=== PATIENT | female | born 1990 | race Caucasian/White ===

== ENCOUNTER 2016-11-15 13:37 | Emergency (ER) | payer MEDICAID ==
--- NOTE | 2016-11-15 15:53 | PD ---
HPI Chief Complaint Contractions Date Seen: Nov 15, 2016 Time Seen: 15:47 Travel History International Travel<30 Days: No Contact w/Intl Traveler<30Days: No Known Affected Area: No History of Present Illness HPI 26-year-old 3 para 2 at 38 weeks 2 days gestation who notes increased contraction activity since last evening. She denies any rupture membranes, bleeding. She reports good movement. She states that she was 3 cm dilated in the office on Friday and her membranes were stripped at that time in anticipation of induction of labor next Friday. Para: 2 : 3 History Past Medical History Medical History: Denies Significant Hx Obstetric History Obstetric History Prior history of shoulder dystocia with forceps delivery of her first child This within, R[place] by diet-controlled gestational diabetes Past Surgical History Surgical History: No Previous Surgery Family History Family History: Negative Social History Alcohol Use: No Tobacco Use: No Substance Abuse: No Allergies-Medications (Allergen,Severity, Reaction): Coded Allergies: Augmentin (Verified Allergy, Severe, 09/22/11) Review of Systems Except as stated in HPI: all other systems reviewed are Neg Physical Exam Narrative GENERAL: Well-nourished, well-developed patient. SKIN: Warm and dry. HEAD: Normocephalic and atraumatic. EYES: No scleral icterus. No injection or drainage. ENT: No nasal drainage noted. Mucous membranes pink. Airway patent. NECK: Supple, trachea midline. No JVD. CARDIOVASCULAR: Regular rate and rhythm without murmurs, gallops, or rubs. RESPIRATORY: Breath sounds equal bilaterally. No accessory muscle use. ABDOMEN/GI: Abdomen soft, non-tender, bowel sounds present, no rebound, no guarding Gravid to [-] weeks size Fundal Height: [-] GENITOURINARY: External Genitalia: intact and normal in appearance BUS glands: [-] Cervix: [-3-4] Dilatation: [-] Effacement: [-60] Station: [High-] Presentation: [-Vertex] Membranes: [intact ] Uterine Contractions: [Mild irregular-] FHT's: Category: [1-] Baseline: [-] Reactive: [-] Variability: [-] Decels: [-] EXTREMITIES: No cyanosis or edema. BACK: Nontender without obvious deformity. No CVA tenderness. NEUROLOGICAL: Awake and alert. Motor and sensory grossly within normal limits. Five out of 5 muscle strength in all muscle groups. Normal speech. 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 Category 1 heart rate. Patient was discharged home with labor precautions. Diagnosis Diagnosis: Primary Impression: 38 weeks gestation of Additional Impression: Irregular contractions Disposition: 01 DISCHARGE HOME Condition: Good Abebe Thomas MD Nov 15, 2016 15:53
== END 2016-11-15 16:14 | disposition home or self-care (01) ==
LOC: HOBED 13:37
DX: O47.1 False labor at or after 37 completed weeks of gestation (principal); Z3A.38 38 weeks gestation of pregnancy
CPT/HCPCS: 59025

== ENCOUNTER 2016-11-20 08:01 | Inpatient (IN) | payer MEDICAID ==
[2016-11-20] VITALS (75 sets, daily range): BP systolic 98–127; BP diastolic 43–79; PULSE 75–104; RESP 16–18; TEMP 98.1–98.5
[2016-11-20] MEDS ORDERED: LACTATED RINGER'S 1000 ML INJ 1,000 ML IV PRN (09:13)
[2016-11-20] MEDS ORDERED: OXYTOCIN 30 UNITS-500ML PREMIX 500 ML IV ONE (09:15)
[2016-11-20] MEDS ORDERED: MINERAL OIL 10 ML VIAL TOPICAL PRN (09:15)
[2016-11-20] MEDS ORDERED: LIDOCAINE HCL 1% 50 ML VIAL INFIL PRN (09:15)
[2016-11-20] MEDS ORDERED: SODIUM CHLORID 0.9% 500 ML INJ 500 ML IV PRN (09:15)
[2016-11-20] MEDS ORDERED: CITRIC ACID-SODIUM CITRATE LIQ 30 ML UDC PO SCH (09:15)
[2016-11-20] MEDS ORDERED: LIDOCAINE HCL 1% 50 ML VIAL I-DERMAL PRN (09:15)
[2016-11-20] MEDS ORDERED: SODIUM CHLOR 0.9% 1000 ML INJ 1,000 ML IV PRN (09:33)
[2016-11-20 09:43] LABS: AUTOMATED NEUTROPHIL # 5.3 TH/MM3 (1.8-7.7); BASOPHIL % 0.6 % (0.0-2.0); EOSINOPHIL # 0.1 TH/MM3 (0-0.4); EOSINOPHIL % 1.3 % (0.0-4.0); HEMATOCRIT 33.4 % (35.0-46.0); HEMO FLAGS DIFF FINAL; LYMPH % 24.6 % (9.0-44.0); MEAN CELL VOLUME 89.2 FL (80.0-100.0); MEAN CORPUSCULAR HEMOGLOBIN 30.6 PG (27.0-34.0); MEAN CORPUSCULAR HGB CONC 34.3 % (32.0-36.0); NEUT % 66.5 % (16.0-70.0); PLATELET COUNT 155 TH/MM3 (150-450); RED BLOOD COUNT 3.74 MIL/MM3 (4.00-5.30); RED CELL DISTRIBUTION WIDTH 14.4 % (11.6-17.2)
[2016-11-20 09:51] LABS: BACTERIA, URINE OCC /hpf; BLOOD, URINE NEG (NEG); GLUCOSE,URINE NEG (NEG); KETONE, URINE NEG (NEG); NITRITE,URINE NEG (NEG); PH, URINE 7.5 (5.0-8.5); SQUAMOUS EPITHELIAL CELL URINE 2 /hpf (0-5); URINE COLOR YELLOW (YELLW/STRAW)
[2016-11-20 09:54] LABS: COMMENT (UR) CULT NOT INDICATED; CULTURE IF INDICATED CULT NOT INDICATED
[2016-11-20] MEDS ORDERED: PENICILLIN G POTASSIUM INJ 5,000,000 UNITS in SODIUM CHLORIDE 0.9% INJ 100 ML IV ONE (10:00)
[2016-11-20] MEDS ORDERED: OXYTOCIN 30 UNITS-500ML PREMIX 500 ML IV SCH (10:00)
[2016-11-20] MEDS ORDERED: LACTATED RINGER'S 1000 ML INJ 1,000 ML IV SCH (10:00)
[2016-11-20] MEDS ORDERED: ePHEDrine/NS 50 MG/5 ML SYR ONE (12:00)
[2016-11-20] MEDS ORDERED: fentaNYL 2MCG-BUPIV 0.125% INJ 100 ML ONE (12:14)
[2016-11-20] MEDS ORDERED: fentaNYL 2MCG-BUPIV 0.125% INJ 100 ML EPIDURAL SCH (13:30)
[2016-11-20] MEDS ORDERED: NO SYSTEM NARCOTICS XX PRN (13:30)
[2016-11-20] MEDS ORDERED: DO NOT ADMINISTER ANTICOAGULANTS XX PRN (13:30)
[2016-11-20] MEDS ORDERED: ePHEDrine/NS 50 MG/5 ML SYR IV PRN (13:30)
[2016-11-20] MEDS ORDERED: PENICILLIN G POTASSIUM INJ 2,500,000 UNITS in SODIUM CHLORIDE 0.9% INJ 100 ML IV SCH (14:00)
[2016-11-20] MEDS ORDERED: DIPHTH/TETANUS/ACEL PERTUSSIS (BOOSTER) 0.5 ML VIAL/PFS IM ONE (16:00)
[2016-11-20] MEDS ORDERED: MEASLES, MUMPS, RUBELLA VACCINE 0.5 ML VIAL SQ ONE (16:00)
--- NOTE | 2016-11-20 16:26 | PD.OB.DELI ---
Delivery Date: Nov 20, 2016 Anesthesia: Epidural Episiotomy: None Vaginal Delivery: Normal, Spontaneous Presentation: Occiput anterior Nuchal Cord: None Infant: Male, Single One Minute : 8 Five Minute : 9 Care: Spontaneous crying, Responded to stimulation Placenta: Spontaneous delivery, Intact, 3 vessel cord Laceration: No lacerations Vince Alvarado MD Nov 20, 2016 16:26
[2016-11-20] MEDS ORDERED: ZOLPIDEM TARTRATE 5 MG TAB PO PRN (16:30)
[2016-11-20] MEDS ORDERED: ALUMINUM/MAGNESIUM/SIMETH 30 ML CUP PO PRN (16:30)
[2016-11-20] MEDS ORDERED: ONDANSETRON ODT 4 MG TAB PO PRN (16:30)
[2016-11-20] MEDS ORDERED: DOCUSATE SODIUM 50 MG/SENNA 8.6 MG TAB PO PRN (16:30)
[2016-11-20] MEDS ORDERED: SODIUM CHLORIDE 0.9% FLUSH 5 ML FLUSH IV PRN (16:30)
[2016-11-20] MEDS: IBUPROFEN 600 MG TAB PO PRN (20:29)
[2016-11-20] MEDS: BENZOCAINE 20% TOPICAL SPRAY 60 ML CAN TOPICAL PRN (20:29)
[2016-11-20] MEDS: WITCH HAZEL 50%/GLYCERIN 12.5% 40 PAD JAR TOPICAL PRN (20:29)
[2016-11-20] MEDS ORDERED: SODIUM CHLORIDE 0.9% FLUSH 5 ML FLUSH IV SCH (21:00)
[2016-11-21] MEDS: ACETAMINOPHEN 325 MG TAB PO PRN ×2 (00:29→07:55)
[2016-11-21] MEDS: IBUPROFEN 600 MG TAB PO PRN ×3 (06:26→23:48)
--- NOTE | 2016-11-21 08:33 | HHI.OB ---
Subjective Post Day: 1 Remarks doig well. Complains of mild back pain and vulvar pain Objective Vitals/I&O Vital Signs Date Time Temp Pulse Resp B/P Pulse Ox O2 Delivery O2 Flow Rate FiO2 11/20/16 20:15 98.1 11/20/16 20:15 83 18 111/63 11/20/16 17:26 16 11/20/16 17:16 79 112/55 11/20/16 17:15 16 11/20/16 17:01 95 110/77 11/20/16 17:00 16 11/20/16 16:45 16 11/20/16 16:45 90 107/63 11/20/16 16:35 80 105/53 11/20/16 16:31 90 104/50 11/20/16 16:30 98.1 16 11/20/16 16:25 104 112/79 11/20/16 16:01 99 119/75 11/20/16 15:46 92 109/64 11/20/16 15:31 100 101/73 11/20/16 15:15 98.5 16 11/20/16 15:10 95 11/20/16 15:05 92 11/20/16 15:01 98 123/63 11/20/16 15:00 93 11/20/16 14:55 94 11/20/16 14:50 98 11/20/16 14:46 101 119/72 11/20/16 14:45 16 11/20/16 14:45 93 11/20/16 14:40 102 11/20/16 14:35 89 11/20/16 14:31 88 126/62 11/20/16 14:30 96 11/20/16 14:25 93 11/20/16 14:20 95 11/20/16 14:16 91 117/57 11/20/16 14:15 98 11/20/16 14:12 16 11/20/16 14:10 91 11/20/16 14:05 92 11/20/16 14:01 96 113/52 11/20/16 14:00 92 11/20/16 13:50 90 11/20/16 13:49 82 109/59 11/20/16 13:46 92 104/61 11/20/16 13:45 89 11/20/16 13:44 92 104/51 11/20/16 13:40 104 11/20/16 13:35 95 11/20/16 13:30 94 16 118/63 11/20/16 13:25 90 11/20/16 13:20 82 11/20/16 13:16 80 114/55 11/20/16 13:15 91 11/20/16 13:10 77 11/20/16 13:05 83 11/20/16 13:01 81 102/45 11/20/16 13:00 16 11/20/16 13:00 81 11/20/16 12:55 86 11/20/16 12:50 86 11/20/16 12:46 85 127/57 11/20/16 12:45 84 11/20/16 12:41 83 103/45 11/20/16 12:40 79 11/20/16 12:39 16 11/20/16 12:36 80 98/50 11/20/16 12:35 86 11/20/16 12:31 75 100/68 11/20/16 12:30 83 11/20/16 12:30 98.5 16 11/20/16 12:26 89 101/43 11/20/16 12:25 88 11/20/16 12:20 90 11/20/16 12:20 81 115/72 11/20/16 12:16 87 100/68 11/20/16 12:11 79 18 114/65 11/20/16 11:45 18 11/20/16 11:08 16 11/20/16 11:04 78 102/51 11/20/16 10:45 16 11/20/16 10:15 16 11/20/16 09:45 16 11/20/16 09:15 98.5 11/20/16 09:15 16 Objective Remarks GENERAL: Well-nourished, well-developed patient. ABDOMEN/GI: Abdomen soft, non-tender. Fundus: Firm, non-tender at umbilicus. GENITOURINARY: Light to moderate bleeding. EXTREMITIES: No cyanosis or edema, non-tender, without signs of DVT. Medications and IVs Current Medications Medications (Trade) Dose Ordered Sig/George Route Start Time Stop Time Status Last Admin (NS Flush) 2 ml BID IV 11/20/16 21:00 (NS Flush) 2 ml UNSCH PRN IV 11/20/16 16:30 (Tylenol) 650 mg Q4H PRN PO 11/20/16 16:30 11/21/16 07:55 (Motrin) 600 mg Q6H PRN PO 11/20/16 16:30 11/21/16 06:26 (Americaine 20% Top Spr) 1 spray Q4H PRN TOPICAL 11/20/16 16:30 11/20/16 20:29 (Tucks Pads) 1 applic QID PRN TOPICAL 11/20/16 16:30 11/20/16 20:29 (China-Colace) 2 tab Q12H PRN PO 11/20/16 16:30 (Ambien) 5 mg HS PRN PO 11/20/16 16:30 (Mag-Al Plus Susp Liq) 15 ml Q8H PRN PO 11/20/16 16:30 (Zofran Odt) 4 mg Q6H PRN PO 11/20/16 16:30 Assessment/Plan Problem List: (1) 38 weeks gestation of (2) Spontaneous vaginal delivery Discharge Planning at 48 hours Vince Alvarado MD Nov 21, 2016 08:33
--- NOTE | 2016-11-21 08:38 | HHI.DCPOC ---
Discharge Care Plan Diagnosis: (1) Spontaneous vaginal delivery Report Symptoms to Your Doctor -Temperate above 100.5 degrees -Redness, of incision or excessive or foul smelling drainage -Unusual pain or calf pain -Increased vaginal bleeding -Painful or difficulty urinating -Feelings of extreme sadness or anxiety after 2 weeks Goals to Promote Your Health * To prevent worsening of your condition and complications * To maintain your health at the optimal level Directions to Meet Your Goals Take your medications as prescribed Follow your dietary instruction Follow activity as directed Ensure plenty of rest for recovery Drink fluids for hydration Keep your appointments as scheduled Take your immunizations and boosters as scheduled If your symptoms worsen call your PCP, if no PCP go to Urgent Care Center or Emergency Room Smoking is Dangerous to Your Health. Avoid second hand smoke Call the 24-hour crisis hotline for domestic abuse at Vince Alvarado MD Nov 21, 2016 08:38
--- NOTE | 2016-11-21 08:44 | HHI.DS ---
Admission Date Nov 20, 2016 at 08:01 Discharge Date: Nov 22, 2016 Admitting Diagnosis Diagnosis: (1) 39 weeks gestation of Delivery Date: Nov 20, 2016 Vaginal Delivery: Normal, Spontaneous Infant: Male, Single Brief History patient came for induction at 39 weeks Hospital Course doing well will be DC home Pt Condition on Discharge: Good Discharge Disposition: Discharge Home Discharge Instructions Diet Instructions: As Tolerated, No Restrictions Activities You Can Perform: Regular-No Restrictions Activities to Avoid: Driving for 24 hrs Follow up Referrals: [facility] - 2 Weeks @ [facility] with Vince Alvarado MD, John William C. MD Nov 21, 2016 08:44
[2016-11-21] MEDS ORDERED: OXYC1TAB63 PO (08:46)
--- NOTE | 2016-11-21 08:48 | MH ---
cc: LANE GARCIA M.D. DATE OF ADMISSION: 11/20/2016 HISTORY AND PHYSICAL This is a 26-year-old 3, para 2, who came in at 39-weeks at 3 cm dilated for induction of labor. The patient is 39 weeks by good dating. PAST MEDICAL HISTORY None. PAST SURGICAL HISTORY None. OBSTETRICAL HISTORY She has had two vaginal deliveries. She has had diabetes, diet controlled during this . GYNECOLOGIC HISTORY Negative. MEDICATIONS None. ALLERGIES None. SOCIAL HISTORY She does not smoke, drink or use drugs. PHYSICAL EXAMINATION VITAL SIGNS: Stable and afebrile. NECK: Thyroid palpably normal. HEART: Regular rate and rhythm without murmur or gallop. LUNGS: Clear to auscultation bilaterally. ABDOMEN: Soft, nontender, nondistended. Gravid uterus. Cervix is 3-4 cm dilated. LOWER EXTREMITIES: No edema. IMPRESSION Our impression at this time is induction of labor at 39 weeks. The patient is 3, para 2 with favorable cervix, group B strep positive. She will receive penicillin prophylaxis. MD NICOLE Albright/JUDY /8:37 AM /8:41 AM
[2016-11-21] MEDS: oxyCODONE/ACETAMINOPHEN 5 MG/325 MG TAB PO PRN ×4 (09:57→23:48)
[2016-11-21] MEDS ORDERED: DIPHTH/TETANUS/ACEL PERTUSSIS (BOOSTER) 0.5 ML VIAL/PFS IM ONE (14:30)
[2016-11-21 21:00] VITALS: BP 108/57; PULSE 78; RESP 20; TEMP 97.8
[2016-11-21] MEDS: BENZOCAINE 20% TOPICAL SPRAY 60 ML CAN TOPICAL PRN (23:47)
[2016-11-21] MEDS: WITCH HAZEL 50%/GLYCERIN 12.5% 40 PAD JAR TOPICAL PRN (23:47)
[2016-11-22] MEDS: IBUPROFEN 600 MG TAB PO PRN (07:36)
[2016-11-22] MEDS: oxyCODONE/ACETAMINOPHEN 5 MG/325 MG TAB PO PRN (07:36)
[2016-11-22] MEDS ORDERED: INFLUENZA VIRUS VACCINE (QUADRIVALENT) 0.5 ML SYR IM ONE (10:00)
== END 2016-11-22 11:15 | disposition home or self-care (01) | DRG 775 ==
LOC: H2EA 08:01 → H1EA 19:37
PROVIDERS: ADMIT Obstetrics & Gynecology; ATTEND Obstetrics & Gynecology
PROC: 10E0XZZ Delivery of Products of Conception, External Approach (ICD-10-PCS; principal; 2016-11-20)
PROC: 00HU33Z Insertion of Infusion Device into Spinal Canal, Percutaneous Approach (ICD-10-PCS; 2016-11-20)
PROC: 3E0R3CZ (ICD-10-PCS; 2016-11-20)
PROC: 3E033VJ Introduction of Other Hormone into Peripheral Vein, Percutaneous Approach (ICD-10-PCS; 2016-11-20)
DX: O24.420 Gestational diabetes mellitus in childbirth, diet controlled (principal); O99.824 Streptococcus B carrier state complicating childbirth; Z37.0 Single live birth; Z3A.39 39 weeks gestation of pregnancy; Z23 Encounter for immunization
CPT/HCPCS: 59025; 81001; 82948; 85025; 86900; 86901; 90686; 90715; J2540; J3010; Q2038